=== PATIENT | female | born 1995 ===

== ENCOUNTER 2024-12-07 12:08 | Day surgery (SDC) | payer OTHER ==
[2024-12-01 12:25] VITALS: BP 90/59
[~2024-12-07] VITALS: Ht 160 cm; Wt 65.8 kg
[2024-12-07] MEDS ORDERED: LIDOCAINE HCL 1%/EPINEPHRINE 20ML VIAL IJ ONE (15:15)
[2024-12-07] MEDS ORDERED: METRONIDAZOLE/SODIUM CHLORIDE 500 MG/100 ML PIGGYBACK IV ONE (15:15)
[2024-12-07] MEDS ORDERED: ZITHROMAX TRI-500 MG PO (15:24)
== END 2024-12-07 19:35 | disposition home or self-care (01) ==
LOC: CIR.AMB 12:08
PROVIDERS: ATTEND Obstetrics & Gynecology
DX: D06.9 Carcinoma in situ of cervix, unspecified (principal); R87.810 Cervical high risk human papillomavirus (HPV) DNA test positive; Z88.1 Allergy status to other antibiotic agents